=== PATIENT | female | born 1950 | race Caucasian/White ===

== ENCOUNTER 2017-04-14 15:09 | Emergency (ER) | payer MEDICARE, BC ==
[2017-04-14 15:14] VITALS: BP 155/92; PULSE 104; RESP 18; TEMP 98.5
[2017-04-14] MEDS ORDERED: DIPH,PERTUS(ACELL)TETVAC-LF 0.5 ML VIAL IM ONE (16:20)
[2017-04-14] MEDS ORDERED: TOPICAL SKIN ADHESIVE 1 EACH AMP TOPICAL ONE (17:13)
--- NOTE | 2017-04-14 17:34 | ED ---
Wound/Laceration HPI - General Chief Complaint: Wound/Laceration Stated Complaint: R leg laceration Time Seen by Provider: 04/14/17 16:03 Source: patient, RN notes reviewed, old records reviewed Mode of arrival: wheelchair Limitations: no limitations - History of Present Illness Initial Comments: This is a 66-year-old female presenting to the emergency department complaining of a laceration over the right lower leg. Patient reports that she is getting out of her car and it got caught on the metal part of the door frame. Patient states that she is currently trying to heal a laceration that occurred on her left leg with a wound care center. Patient reports that a similar situation happened on her left leg a few weeks ago and required her to get stitches. Patient reports that her wound did not heal well after getting stitches and now she is going through wound care. She does not want to have stitches at this time for her right leg. states that she is not up-to-date on her tetanus vaccination. She reports that she called her warhead maintenance specialist already about this new laceration and they report that they're going to help take care of this one. Patient reports that she has no pain with ambulation or movement. She reports that is almost a skin flap a chief continue the superficial muscle layer.Patient denies any recent fever, chills, shortness of breath, chest pain, back pain, abdominal pain, nausea vomiting, numbness or tingling, dysuria or hematuria, constipation or diarrhea, headaches or visual changes, or any other current symptoms - Related Data Home Medications Medication Instructions Recorded Confirmed Fluticasone Propionate [Flonase] 1 spray EA NOSTRIL BID 12/08/14 04/14/16 Fluticasone/Salmeterol [Advair 1 puff INHALATION RT-BID 12/08/14 04/14/16 250-50 Diskus] Montelukast [Singulair] 10 mg PO HS 12/08/14 04/14/16 fentaNYL [Fentanyl] 1 patch TOPICAL Q72H PRN 12/08/14 04/14/16 Atorvastatin [Lipitor] 20 mg PO HS 06/08/15 04/14/16 Metoprolol Succinate [Toprol XL] 50 mg PO BID 01/09/16 04/14/16 Omeprazole [PriLOSEC] 20 mg PO QAM 01/09/16 04/14/16 Albuterol Nebulized [Ventolin 2.5 mg INHALATION RT-Q6H PRN 01/21/16 04/14/16 Nebulized] Aspirin EC [Ecotrin] 81 mg PO DAILY 04/14/16 04/14/16 Bisacodyl [Dulcolax] 10 mg PO HS 04/14/16 04/14/16 Gabapentin [Neurontin] 300 mg PO DAILY@1800 04/14/16 04/14/16 Lisinopril [Prinivil] 5 mg PO DAILY 04/14/16 04/14/16 Metolazone [Zaroxolyn] 5 mg PO DAILY 04/14/16 04/14/16 Previous Rx's Medication Instructions Recorded Cephalexin [Keflex] 500 mg PO Q6HR 10 Days 04/14/17 Allergies Allergy/AdvReac Type Severity Reaction Status Date / Time hydromorphone [From Dilaudid] Allergy Unknown Verified 04/14/17 15:14 morphine Allergy Dyspnea Verified 04/14/17 15:14 nalbuphine HCl [From Nubain] Allergy Dyspnea Verified 04/14/17 15:14 naproxen [From Naprosyn] Allergy Dyspnea Verified 04/14/17 15:14 Review of Systems ROS Statement: Those systems with pertinent positive or pertinent negative responses have been documented in the HPI. ROS Other: All systems not noted in ROS Statement are negative. Past Medical History Past Medical History: Atrial Fibrillation, Cancer, COPD, Deep Vein Thrombosis ( DVT), GERD/Reflux, Hyperlipidemia, Hypertension, Prostate Disorder, Respiratory Disorder, Vascular Disorder Additional Past Medical History / Comment(s): LADY WINDERMERE'S SYNDROME, COPD, chronic bronchiectasis, chronic pulmonary colonization with Pseudomonas, breast cancer status post left mastectomy, atrial fibrillation, peripheral vascular disease, remote history of DVT of the lower extremity, hypertension, hyperlipidemia, History of Any Multi-Drug Resistant Organisms: VRE Date of last positivie culture/infection: 01/21/16 MDRO Source:: Urine Past Surgical History: Back Surgery, Breast Surgery, Cardiac Ablation, Hysterectomy Additional Past Surgical History / Comment(s): FEM/FEM BYPASS, 05/03/15 AT [place], LYSIS OF ADHESIONS/BOWEL, LEFT MASTECTOMY, MELECIO BREAST IMPLANTS, PREVIOUS BRONCHOSCOPY, lower back surgery, 2 bronchoscopies, colonoscopy-normal , r inguinal repair which pt states needs to be redone. Additional Past Anesthesia/Blood Transfusion Reaction / Comment(s): STATES TAKES LONG TIME WAKING UP Past Psychological History: No Psychological Hx Reported Additional Psychological History / Comment(s): Pt resides with her spouse. She is independent. She uses no assistive device. Smoking Status: Former smoker Past Alcohol Use History: None Reported Additional Past Alcohol Use History / Comment(s): SMOKED FROM 1963 TO 03-03-15 Past Drug Use History: None Reported Additional Drug Use History / Comment(s): USES MEDICAL MARIJUANA MARINOL PO OCCASIONALLY TO INCREASE APPETITE - Past Family History Father Family Medical History: Diabetes Mellitus Additional Family Medical History / Comment(s): Father at age 83 yrs. Sister(s) Family Medical History: Cancer, Deep Vein Thrombosis (DVT) Additional Family Medical History / Comment(s): BREAST, Mother Family Medical History: Deep Vein Thrombosis (DVT) Additional Family Medical History / Comment(s): Mother is 94 yrs old and doing well. General Exam - General Exam Comments Initial Comments: Pleasant 66-year-old female. No acute distress. Limitations: no limitations General appearance: alert, in no apparent distress Head exam: Present: atraumatic, normocephalic, normal inspection Eye exam: Present: normal appearance, PERRL, EOMI. Absent: scleral icterus, conjunctival injection, periorbital swelling ENT exam: Present: normal exam, mucous membranes moist, TM's normal bilaterally Neck exam: Present: normal inspection. Absent: tenderness, meningismus, lymphadenopathy Respiratory exam: Present: normal lung sounds bilaterally. Absent: respiratory distress, wheezes, rales, rhonchi, stridor Cardiovascular Exam: Present: regular rate, normal rhythm, normal heart sounds. Absent: systolic murmur, diastolic murmur, rubs, gallop, clicks GI/Abdominal exam: Present: soft, normal bowel sounds. Absent: distended, tenderness, guarding, rebound, rigid Extremities exam: Present: normal inspection, full ROM, normal capillary refill. Absent: tenderness, pedal edema, joint swelling, calf tenderness Right Knee exam: Present: normal inspection, full ROM Lower Leg exam: Present: full ROM, laceration (6cm laceration and skin flap. Evidence of fascia of muscle. No evidence of muscle laceration. ). Absent: normal inspection Ankle exam: Present: normal inspection, full ROM Foot/Toe exam: Present: normal inspection, full ROM Neurovascular tendon exam: Present: no vascular compromise Gait: not tested/not observed. negative: observed and normal Back exam: Present: normal inspection, full ROM Neurological exam: Present: alert, oriented X3, CN II-XII intact Psychiatric exam: Present: normal affect, normal mood Skin exam: Present: warm, dry, intact, normal color. Absent: rash Course Vital Signs 04/14/17 15:11 Temperature 98.5 F Pulse Rate 104 H Respiratory 18 Rate Blood Pressure 155/92 O2 Sat by Pulse 93 L Oximetry Procedures - Laceration Laceration #2 Indication: laceration Site: lower extremity (right hardin) Size (cm): 6 Description: flap Depth: simple, single layer Anesthetic Used: benzocaine 0.25% Amount (mls): 3 Pre-repair: wound explored, irrigated extensively Type of Sutures: other (steristrips and dermabond) Size of Sutures: other Number of Sutures: 12 (steristrips) Patient Tolerated Procedure: well, no complications Medical Decision Making - Medical Decision Making This is a 66-year-old female presenting to the emergency department complaining of a laceration over the right lower leg. Patient reports that she is getting out of her car and it got caught on the metal part of the door frame. Patient states that she is currently trying to heal a laceration that occurred on her left leg with a wound care center. Patient reports that a similar situation happened on her left leg a few weeks ago and required her to get stitches. Patient reports that her wound did not heal well after getting stitches and now she is going through wound care. She does not want to have stitches at this time for her right leg. states that she is not up-to-date on her tetanus vaccination. She reports that she called her warhead maintenance specialist already about this new laceration and they report that they're going to help take care of this one. Hardin has a significant laceration skin flap extending 6 cm. Patient wound was anesthetized and thoroughly irrigated with normal saline. Patient is refusing sutures. Discussed the benefit as this is a deep wound. Patient reports that she's had a bad experience and she is currently undergoing wound care because of it. Patient reports that she only wants Steri-Strips. Discussed the risk and benefits of Steri-Strips and that it could possibly open up and patient still wanted to have the Steri-Strips. Wound was cleaned and well approximated. Patient received approximately 12 Steri-Strips to hold the wound closed. We discussed that she needs to be nonweightbearing is this could cause the sutures should to open the wound up. Discussed close follow-up with her warhead maintenance specialist. Patient is up-to-date on her tetanus vaccination. She was also placed on Keflex. Patient understands treatment plan will comply. Return parameters were discussed. Disposition Clinical Impression: Noninfected skin tear of right leg Disposition: HOME SELF-CARE Condition: Good Instructions: Skin Tear (ED) Additional Instructions: Patient advised to put wound dressing on. Do not get this area wet for the next 48 hours. Patient should be nonweightbearing for the next 24-48 hours. Follow-up with your warhead maintenance specialist. Return to the emergency department if any alarming signs or symptoms occur. Prescriptions: Cephalexin [Keflex] 500 mg PO Q6HR 10 Days Referrals: Juan Alberto Pascual DO [Primary Care Provider] - 1-2 days Time of Disposition: 17:33
== END 2017-04-14 17:54 | disposition home or self-care (01) ==
LOC: EC 15:09
DX: S81.811A Laceration without foreign body, right lower leg, initial encounter (principal); E78.5 Hyperlipidemia, unspecified; I10 Essential (primary) hypertension; J47.9 Bronchiectasis, uncomplicated; K21.9 Gastro-esophageal reflux disease without esophagitis; Z87.891 Personal history of nicotine dependence; Z79.51 Long term (current) use of inhaled steroids; Z79.82 Long term (current) use of aspirin; Z79.899 Other long term (current) drug therapy; Z88.5 Allergy status to narcotic agent; Z88.6 Allergy status to analgesic agent; Z85.3 Personal history of malignant neoplasm of breast; Z90.12 Acquired absence of left breast and nipple; Z98.82 Breast implant status; Z23 Encounter for immunization; W22.8XXA Striking against or struck by other objects, initial encounter; Y93.89 Activity, other specified
CPT/HCPCS: 90471; 90715; 99282

== ENCOUNTER → 2017-04-21 | Outpatient (CLI) | payer MEDICARE, BC ==
--- NOTE | 2017-04-21 14:11 | XR ---
Abdomen HISTORY: Constipation Frontal view of the abdomen correlated to prior exam 01/26/2016, lumbar spine today and prior lumbar sp ine 02/25/2016 Left common iliac stent is noted. Lung bases are stable, there are interstitial changes at the left l jaquelin base. No bowel obstruction or pneumoperitoneum is evident. Bone mineralization is reduced. There is been interval vertebroplasty at T10 for osteoporotic compression fracture. Compression deformity n oted inferior endplate L2 as on prior lumbar spine plain film. IMPRESSION: Nonobstructive bowel gas pattern
--- NOTE | 2017-04-21 14:12 | XR ---
EXAMINATION TYPE: XR lumbosacral spine min 4V DATE OF EXAM ORDERED: 04/21/2017 HISTORY: M54.5 LOW BACK PAIN. COMPARISON: Previous study dated 02/25/2016. FINDINGS: There is a gentle dextroscoliosis at the thoracolumbar junction. There is mild wedging of the L2 vertebral body unchanged from previous. There is worsening wedging of the T11 vertebral body. Alignment remains normal. There is disc space loss, most marked at T12-L1 an d L4-5. There is hypertrophic spondylosis at T12-L1, L2-3 and L4-5. There is facet arthropathy in the lower lumbar facets. The pedicles are intact. Incidental note is made of a left iliac stent. IMPRESSION: 1. WORSENING WEDGING OF THE T11 VERTEBRAL BODY. 2. STABLE SUPERIOR ENDPLATE INFRACTION OF THE L2 VERTEBRAL BODY. 3. NO ACUTE OSSEOUS LESION. 4. DEGENERATIVE CHANGE.
== END | disposition home or self-care (01) ==
LOC: RADXRMAIN 13:16
PROVIDERS: ATTEND Internal Medicine
DX: M47.816 Spondylosis without myelopathy or radiculopathy, lumbar region (principal); K59.00 Constipation, unspecified
CPT/HCPCS: 72110; 74000; 96365

== ENCOUNTER 2017-05-11 12:22 | Emergency (ER) | payer MEDICARE, BC ==
[2017-05-11] MEDS ORDERED: DIAZEPAM 5 MG/ML 2 ML SYRINGE IVP STA (12:32)
[2017-05-11] MEDS ORDERED: KETOROLAC 30 MG/ML 1 ML VIAL IVP STA (12:32)
--- NOTE | 2017-05-11 12:33 | ED ---
General Adult HPI - General Stated complaint: med reaction/Pain Time Seen by Provider: 05/11/17 12:26 Source: RN notes reviewed, old records reviewed - History of Present Illness Initial comments: This is a 59-year-old female here for evaluation. The patient presents here today for evaluation of medication reaction. Patient received transfusion of iron today. Patient then began to have severe back pain. Patient same reaction about 8 years ago when she had same procedure. No acute distress. Patient is complaining of pain - Related Data Home Medications Medication Instructions Recorded Confirmed Montelukast [Singulair] 10 mg PO HS 12/08/14 05/11/17 Atorvastatin [Lipitor] 20 mg PO HS 06/08/15 05/11/17 Omeprazole [PriLOSEC] 20 mg PO BID 01/09/16 05/11/17 Aspirin EC [Ecotrin] 81 mg PO DAILY 04/14/16 05/11/17 Bisacodyl [Dulcolax] 10 - 15 mg PO HS 04/14/16 05/11/17 Gabapentin [Neurontin] 300 mg PO BID 04/14/16 05/11/17 Albuterol 0.5% Nebulizer Soln 1 vial INHALATION RT-Q6H PRN 05/11/17 05/11/17 Docusate [Colace] 200 mg PO DAILY 05/11/17 05/11/17 Dymista Nasal [place] 1 spray EA NOSTRIL DAILY 05/11/17 05/11/17 Furosemide [Lasix] 20 - 40 mg PO DAILY 05/11/17 05/11/17 Lactulose 20 gm PO DAILY 05/11/17 05/11/17 Metoprolol Tartrate 25 mg PO HS 05/11/17 05/11/17 Spironolactone [Aldactone] 12.5 mg PO BID 05/11/17 05/11/17 Tiotropium [place] [Spiriva] 1 cap INHALATION RT-BID 05/11/17 05/11/17 Tobramycin 300mg/5ml Neb Soln 300 mg INHALATION RT-BID 05/11/17 05/11/17 predniSONE 20 mg PO HS 05/11/17 05/11/17 traMADol HCL [Ultram] 50 mg PO Q6HR PRN 05/11/17 05/11/17 Allergies Allergy/AdvReac Type Severity Reaction Status Date / Time hydromorphone [From Dilaudid] Allergy Unknown Verified 05/11/17 13:02 morphine Allergy Dyspnea Verified 05/11/17 13:02 nalbuphine HCl [From Nubain] Allergy Dyspnea Verified 05/11/17 13:02 naproxen [From Naprosyn] Allergy Dyspnea Verified 05/11/17 13:02 Review of Systems ROS Statement: Those systems with pertinent positive or pertinent negative responses have been documented in the HPI. ROS Other: All systems not noted in ROS Statement are negative. Past Medical History Past Medical History: Atrial Fibrillation, Cancer, COPD, Deep Vein Thrombosis ( DVT), GERD/Reflux, Hyperlipidemia, Hypertension, Prostate Disorder, Respiratory Disorder, Vascular Disorder Additional Past Medical History / Comment(s): LADY WINDERMERE'S SYNDROME, COPD, chronic bronchiectasis, chronic pulmonary colonization with Pseudomonas, breast cancer status post left mastectomy, atrial fibrillation, peripheral vascular disease, remote history of DVT of the lower extremity, hypertension, hyperlipidemia, History of Any Multi-Drug Resistant Organisms: VRE Date of last positivie culture/infection: 01/21/16 MDRO Source:: Urine Past Surgical History: Back Surgery, Breast Surgery, Cardiac Ablation, Hysterectomy Additional Past Surgical History / Comment(s): FEM/FEM BYPASS, 05/03/15 AT [place], LYSIS OF ADHESIONS/BOWEL, LEFT MASTECTOMY, MELECIO BREAST IMPLANTS, PREVIOUS BRONCHOSCOPY, lower back surgery, 2 bronchoscopies, colonoscopy-normal , r inguinal repair which pt states needs to be redone. Additional Past Anesthesia/Blood Transfusion Reaction / Comment(s): STATES TAKES LONG TIME WAKING UP Smoking Status: Former smoker - Past Family History Father Family Medical History: Diabetes Mellitus Additional Family Medical History / Comment(s): Father at age 83 yrs. Sister(s) Family Medical History: Cancer, Deep Vein Thrombosis (DVT) Additional Family Medical History / Comment(s): BREAST, Mother Family Medical History: Deep Vein Thrombosis (DVT) Additional Family Medical History / Comment(s): Mother is 94 yrs old and doing well. General Exam General appearance: alert, in no apparent distress Head exam: Present: atraumatic, normocephalic, normal inspection Eye exam: Present: normal appearance, PERRL, EOMI. Absent: scleral icterus, conjunctival injection, periorbital swelling ENT exam: Present: normal exam, mucous membranes moist Neck exam: Present: normal inspection. Absent: tenderness, meningismus, lymphadenopathy Respiratory exam: Present: normal lung sounds bilaterally. Absent: respiratory distress, wheezes, rales, rhonchi, stridor Cardiovascular Exam: Present: regular rate, normal rhythm, normal heart sounds. Absent: systolic murmur, diastolic murmur, rubs, gallop, clicks GI/Abdominal exam: Present: soft, normal bowel sounds. Absent: distended, tenderness, guarding, rebound, rigid Extremities exam: Present: normal inspection, full ROM, normal capillary refill. Absent: tenderness, pedal edema, joint swelling, calf tenderness Back exam: Present: normal inspection Neurological exam: Present: alert, oriented X3, CN II-XII intact Psychiatric exam: Present: normal affect, normal mood Skin exam: Present: warm, dry, intact, normal color. Absent: rash Course Vital Signs 05/11/17 05/11/17 12:42 12:52 Temperature 97.3 F L 97.3 F L Pulse Rate 102 H 101 H Respiratory 20 20 Rate Blood Pressure 126/59 126/59 O2 Sat by Pulse 96 94 L Oximetry - Reevaluation(s) Reevaluation #1: 05/11/17 13:19 Patient's pain at this time is improved, refusing any further pain medication Medical Decision Making - Medical Decision Making 59 female here with medication reaction, patient's symptoms are improved at this time, patient will be discharged home Disposition Clinical Impression: Medication reaction Disposition: HOME SELF-CARE Condition: Good Instructions: Back Pain (ED) Referrals: Juan Alberto Pascual DO [Primary Care Provider] - 1-2 days
[2017-05-11] MEDS ORDERED: ACETAMINOPHEN IV (For NPO) 1,000 MG in EMPTY BAG 1 BAG IVPB STA (12:35)
[2017-05-11 14:05] VITALS: RESP 16; TEMP 97.4
[2017-05-11 14:49] VITALS: BP 100/61; PULSE 85
== END 2017-05-11 14:47 | disposition home or self-care (01) ==
LOC: EC 12:22
DX: M54.9 Dorsalgia, unspecified (principal); T45.4X5A Adverse effect of iron and its compounds, initial encounter; K21.9 Gastro-esophageal reflux disease without esophagitis; E78.5 Hyperlipidemia, unspecified; I10 Essential (primary) hypertension; Z87.891 Personal history of nicotine dependence; Z88.5 Allergy status to narcotic agent; Z88.8 Allergy status to other drugs, medicaments and biological substances; Z85.3 Personal history of malignant neoplasm of breast; Z79.82 Long term (current) use of aspirin; Z79.52 Long term (current) use of systemic steroids; Z79.899 Other long term (current) drug therapy
CPT/HCPCS: 99283; 96365; 96366; 96375; J1885; J0131

== ENCOUNTER → 2017-06-07 | Outpatient (CLI) | payer MEDICARE, BC ==
--- NOTE | 2017-06-07 13:04 | XR ---
EXAMINATION TYPE: XR chest 2V DATE OF EXAM: 06/07/2017 HISTORY: I50.32 CHF. REFERENCE: Previous study dated 04/14/2016. FINDINGS: There is a moderate dextroscoliosis. There has been a previous kyphoplasty one of the mid d orsal vertebra. The lungs are overinflated. Heart size upper limits of normal. There is scarring in the upper lobes b ilaterally. There is diffuse interstitial change. At least part of this is chronic. There are multipl e tiny nodules throughout the right lung. These are present previously. No definite pleural fluid is seen. IMPRESSION: 1. COPD. 2. BORDERLINE CARDIOMEGALY. 3. CHRONIC INTERSTITIAL CHANGE. 4. MULTIPLE RIGHT-SIDED PULMONARY NODULES.
--- NOTE | 2017-06-07 13:06 | XR ---
EXAMINATION TYPE: XR abdomen 1V DATE OF EXAM: 06/07/2017 COMPARISON: 04/21/2017 HISTORY: Pain TECHNIQUE: One view abdominal series FINDINGS: The osseous structures are intact. The bowel gas pattern is nonspecific. Lung bases are clear. Dege nerative change of the spine with compression deformity of T12 and L2 stable from previous. Vascular stent and vascular calcifications noted. Arthropathy of the hip joints. Additional nonspecific calcifications in the upper abdomen. Chronic ap pearing deformity of the pubic symphysis on the right. IMPRESSION: 1. Nonspecific abdomen. Single prominent bowel loop in the midabdomen. Correlate clinically. 2. Somewhat nodular pattern to the left hemidiaphragm. Chest X-ray correlation suggested.
== END | disposition home or self-care (01) ==
LOC: RADXRMAIN 12:33
PROVIDERS: ATTEND Internal Medicine
DX: I50.32 Chronic diastolic (congestive) heart failure (principal); J44.9 Chronic obstructive pulmonary disease, unspecified; R91.8 Other nonspecific abnormal finding of lung field; R10.0 Acute abdomen
CPT/HCPCS: 71020; 74000

== ENCOUNTER → 2017-06-23 | Outpatient (CLI) | payer MEDICARE, BC ==
[2017-06-23 13:13] LABS: Basophils # (A) 0.1 k/uL (0-0.2); Basophils % (A) 0 %; CH 29.6; CHCM 31.9; Eosinophils % (A) 0 %; HCT 38.1 % (34.0-46.0); HDW 3.22; HGB 12.4 gm/dL (11.4-16.0); Hypochromasia Slight; Luc # (Auto) 0.08; Luc % (Auto) 1; Lymphocytes # (A) 0.8 k/uL (1.0-4.8); Lymphocytes % (A) 5 %; MCH 30.6 pg (25.0-35.0); MCHC 32.6 g/dL (31.0-37.0); MCV 93.8 fL (80.0-100.0); Mean Platelet Volume 6.4; Monocytes # (A) 0.2 k/uL (0-1.0); Monocytes % (A) 2 %; Neutrophils # (A) 14.4 k/uL (1.3-7.7); Neutrophils % (A) 93 %; RBC 4.06 m/uL (3.80-5.40); RDW 15.7 % (11.5-15.5); WBC 15.6 k/uL (3.8-10.6); WBC (Perox) 15.37
[2017-06-23 13:28] LABS: Calcium 9.4 mg/dL (8.4-10.2); Magnesium 1.8 mg/dL (1.6-2.3); Potassium 3.8 mmol/L (3.5-5.1); Total Bilirubin 0.4 mg/dL (0.2-1.3); Total Protein 6.3 g/dL (6.3-8.2)
== END | disposition home or self-care (01) ==
LOC: LABWHC1 12:41
PROVIDERS: ATTEND Internal Medicine
DX: M62.830 Muscle spasm of back (principal); I50.32 Chronic diastolic (congestive) heart failure
CPT/HCPCS: 36415; 80053; 83735; 83880; 85025

== ENCOUNTER → 2017-07-07 | Outpatient (CLI) | payer MEDICARE, BC ==
[2017-07-07 16:21] LABS: Anisocytosis Slight; Basophils % (A) 0 %; CH 30.9; CHCM 32.3; Eosinophils # (A) 0.1 k/uL (0-0.7); Eosinophils % (A) 1 %; HCT 39.1 % (34.0-46.0); HDW 3.01; HGB 12.4 gm/dL (11.4-16.0); Luc % (Auto) 1; Lymphocytes # (A) 0.9 k/uL (1.0-4.8); Lymphocytes % (A) 8 %; MCH 30.6 pg (25.0-35.0); MCHC 31.8 g/dL (31.0-37.0); MCV 96.4 fL (80.0-100.0); Mean Platelet Volume 6.9; Monocytes # (A) 0.5 k/uL (0-1.0); Monocytes % (A) 4 %; Neutrophils # (A) 9.7 k/uL (1.3-7.7); Neutrophils % (A) 86 %; RBC 4.06 m/uL (3.80-5.40); RDW 16.2 % (11.5-15.5); WBC 11.3 k/uL (3.8-10.6)
[2017-07-07 16:31] LABS: Calcium 9.7 mg/dL (8.4-10.2); Potassium 3.8 mmol/L (3.5-5.1); Total Bilirubin 0.3 mg/dL (0.2-1.3); Total Protein 6.8 g/dL (6.3-8.2)
--- NOTE | 2017-07-07 17:15 | XR ---
EXAMINATION TYPE: XR chest 2V DATE OF EXAM: 07/07/2017 COMPARISON: 06/07/2017 HISTORY: Chest pain TECHNIQUE: Frontal and lateral views of the chest are obtained. FINDINGS: There is coarsening of interstitial pulmonary markings. There is no definite heart failure . Heart size is normal. There is some curvilinear density with calcification in the left upper lobe. There is thoracic kyphotic deformity with anterior wedging of several thoracic vertebra. There is ost eopenia. IMPRESSION: Pulmonary interstitial fibrosis and scarring. No acute lung disease. No change compared to old exam. Multiple old thoracic compression fractures.
== END | disposition home or self-care (01) ==
LOC: LABWHC1 15:49
PROVIDERS: ATTEND Internal Medicine
DX: J84.10 Pulmonary fibrosis, unspecified (principal); J98.4 Other disorders of lung; J18.9 Pneumonia, unspecified organism
CPT/HCPCS: 36415; 71020; 80053; 85025; 87070

== ENCOUNTER → 2017-09-01 | Outpatient (CLI) | payer MEDICARE, BC ==
--- NOTE | 2017-09-01 15:55 | XR ---
EXAMINATION TYPE: XR chest 2V DATE OF EXAM: 09/01/2017 COMPARISON: Prior chest x-ray 07/07/2017 HISTORY: Pneumonia TECHNIQUE: Frontal and lateral views of the chest are obtained. FINDINGS: There is no focal air space opacity, pleural effusion, or pneumothorax seen. Prominent sincere g volumes compatible with COPD. Areas of scarring are again noted. Interstitium is prominent as on pr evious exam. There is a scoliosis. Prior vertebroplasty change noted in the lower thoracic spine. The cardiac silhouette size is stable. Multiple thoracic compression deformities present. There are alexey st prostheses. IMPRESSION: No acute cardiopulmonary process. Interstitial lung disease. Additional findings above.
== END | disposition home or self-care (01) ==
LOC: RADXRMAIN 15:18
PROVIDERS: ATTEND Internal Medicine
DX: J84.9 Interstitial pulmonary disease, unspecified (principal)
CPT/HCPCS: 71020

== ENCOUNTER 2017-09-08 13:22 | Emergency (ER) | payer MEDICARE, BC ==
[2017-09-08 13:32] VITALS: BP 137/92; PULSE 95; RESP 16; TEMP 99
[2017-09-08] MEDS ORDERED: TOPICAL SKIN ADHESIVE 1 EACH AMP TOPICAL ONE (13:41)
--- NOTE | 2017-09-08 14:13 | ED ---
Wound/Laceration HPI - General Chief Complaint: Wound/Laceration Stated Complaint: Leg Laceration Time Seen by Provider: 09/08/17 13:34 Source: patient, RN notes reviewed Mode of arrival: wheelchair Limitations: no limitations - History of Present Illness Initial Comments: This is a pleasant 67-year-old female with a history of COPD and peripheral vascular disease. She presents emergency department today after sustaining a small wound to the anterior aspect of her left lower leg when her oxygen tank fell over and scraped her. She denies any significant pain. No difficulty with ambulation. No other wounds. Last tetanus shot was 5 months ago. Patient was concerned because she has had problems with wound healing in the past. They made an attempt at home to clean the wound and approximate the skin edges. However, they decided to have the wound checked out. Injury occurred just prior to arrival. No other injuries. Distal paresthesias. No distal or proximal injuries. - Related Data Home Medications Medication Instructions Recorded Confirmed Montelukast [Singulair] 10 mg PO HS 12/08/14 05/11/17 Atorvastatin [Lipitor] 20 mg PO HS 06/08/15 05/11/17 Omeprazole [PriLOSEC] 20 mg PO BID 01/09/16 05/11/17 Aspirin EC [Ecotrin] 81 mg PO DAILY 04/14/16 05/11/17 Bisacodyl [Dulcolax] 10 - 15 mg PO HS 04/14/16 05/11/17 Gabapentin [Neurontin] 300 mg PO BID 04/14/16 05/11/17 Albuterol 0.5% Nebulizer Soln 1 vial INHALATION RT-Q6H PRN 05/11/17 05/11/17 Docusate [Colace] 200 mg PO DAILY 05/11/17 05/11/17 Dymista Nasal [place] 1 spray EA NOSTRIL DAILY 05/11/17 05/11/17 Furosemide [Lasix] 20 - 40 mg PO DAILY 05/11/17 05/11/17 Lactulose 20 gm PO DAILY 05/11/17 05/11/17 Metoprolol Tartrate 25 mg PO HS 05/11/17 05/11/17 Spironolactone [Aldactone] 12.5 mg PO BID 05/11/17 05/11/17 Tiotropium [place] [Spiriva] 1 cap INHALATION RT-BID 05/11/17 05/11/17 Tobramycin 300mg/5ml Neb Soln 300 mg INHALATION RT-BID 05/11/17 05/11/17 predniSONE 20 mg PO HS 05/11/17 05/11/17 traMADol HCL [Ultram] 50 mg PO Q6HR PRN 05/11/17 05/11/17 Allergies Allergy/AdvReac Type Severity Reaction Status Date / Time hydromorphone [From Dilaudid] Allergy Unknown Verified 09/08/17 13:32 morphine Allergy Dyspnea Verified 09/08/17 13:32 nalbuphine HCl [From Nubain] Allergy Dyspnea Verified 09/08/17 13:32 naproxen [From Naprosyn] Allergy Dyspnea Verified 09/08/17 13:32 Review of Systems ROS Statement: Those systems with pertinent positive or pertinent negative responses have been documented in the HPI. ROS Other: All systems not noted in ROS Statement are negative. Past Medical History Past Medical History: Atrial Fibrillation, Cancer, COPD, Deep Vein Thrombosis ( DVT), GERD/Reflux, Hyperlipidemia, Hypertension, Prostate Disorder, Respiratory Disorder, Vascular Disorder Additional Past Medical History / Comment(s): LADY WINDERMERE'S SYNDROME, COPD, chronic bronchiectasis, chronic pulmonary colonization with Pseudomonas, breast cancer status post left mastectomy, atrial fibrillation, peripheral vascular disease, remote history of DVT of the lower extremity, hypertension, hyperlipidemia, History of Any Multi-Drug Resistant Organisms: VRE Date of last positivie culture/infection: 01/21/16 MDRO Source:: Urine Past Surgical History: Back Surgery, Breast Surgery, Cardiac Ablation, Hysterectomy Additional Past Surgical History / Comment(s): FEM/FEM BYPASS, 05/03/15 AT [place], LYSIS OF ADHESIONS/BOWEL, LEFT MASTECTOMY, MELECIO BREAST IMPLANTS, PREVIOUS BRONCHOSCOPY, lower back surgery, 2 bronchoscopies, colonoscopy-normal , r inguinal repair which pt states needs to be redone. Additional Past Anesthesia/Blood Transfusion Reaction / Comment(s): STATES TAKES LONG TIME WAKING UP Past Psychological History: No Psychological Hx Reported Smoking Status: Former smoker Additional History: Reviewed all past medical history. - Past Family History Father Family Medical History: Diabetes Mellitus Additional Family Medical History / Comment(s): Father at age 83 yrs. Sister(s) Family Medical History: Cancer, Deep Vein Thrombosis (DVT) Additional Family Medical History / Comment(s): BREAST, Mother Family Medical History: Deep Vein Thrombosis (DVT) Additional Family Medical History / Comment(s): Mother is 94 yrs old and doing well. General Exam - General Exam Comments Initial Comments: This is a thin-appearing 67-year-old female in no distress Limitations: no limitations General appearance: alert, in no apparent distress Head exam: Present: atraumatic, normocephalic, normal inspection Eye exam: Present: normal appearance, EOMI. Absent: scleral icterus, conjunctival injection ENT exam: Present: normal exam, normal oropharynx Neck exam: Present: normal inspection Respiratory exam: Present: normal lung sounds bilaterally. Absent: respiratory distress, wheezes, rales, rhonchi, stridor Cardiovascular Exam: Present: regular rate, normal rhythm, normal heart sounds. Absent: systolic murmur, diastolic murmur, rubs, gallop, clicks Neurological exam: Present: alert, oriented X3, CN II-XII intact Psychiatric exam: Present: normal affect, normal mood Skin exam: Present: warm, dry, other (Patient has a superficial skin tear to the anterior aspect of her left lower leg. This is triangular in shape. Skin tears 3 cm in length. There is no contamination. No evidence of infection. Extends slightly into subcutaneous tissue.). Absent: intact Course Vital Signs 09/08/17 13:30 Temperature 99 F Pulse Rate 95 Respiratory 16 Rate Blood Pressure 137/92 O2 Sat by Pulse 95 Oximetry Procedures - Laceration Laceration #1 Consent Obtained: verbal consent Time Out Performed: No Indication: laceration Site: lower extremity, other (Left lower leg) Size (cm): 3 Description: flap Depth: simple, single layer Pre-repair: wound explored, irrigated extensively Type of Sutures: other (Dermabond) Patient Tolerated Procedure: well, no complications Additional Comments: Dermabond care discussed, signs and symptoms of infection discussed. Medical Decision Making - Medical Decision Making Return to the ER at once if the symptoms worsen or problems or difficulties arise. Return and follow-up parameters discussed. Disposition Clinical Impression: Skin tear of left lower leg without complication Disposition: HOME SELF-CARE Condition: Good Instructions: Skin Adhesive Care (ED) Additional Instructions: Return to the ER at once if the symptoms worsen or problems or difficulties arise. Much for signs and symptoms of infection. Referrals: Juan Alberto Pascual DO [Primary Care Provider] - 09/11/17 Time of Disposition: 14:08
== END 2017-09-08 14:12 | disposition home or self-care (01) ==
LOC: EC 13:22
DX: S81.812A Laceration without foreign body, left lower leg, initial encounter (principal); I48.91 Unspecified atrial fibrillation; J44.9 Chronic obstructive pulmonary disease, unspecified; K21.9 Gastro-esophageal reflux disease without esophagitis; E78.5 Hyperlipidemia, unspecified; I10 Essential (primary) hypertension; Z85.3 Personal history of malignant neoplasm of breast; Z87.891 Personal history of nicotine dependence; Z79.82 Long term (current) use of aspirin; Z79.52 Long term (current) use of systemic steroids; Z79.899 Other long term (current) drug therapy; Z88.5 Allergy status to narcotic agent; Z88.8 Allergy status to other drugs, medicaments and biological substances; W22.8XXA Striking against or struck by other objects, initial encounter
CPT/HCPCS: 12002; 99282

== ENCOUNTER 2017-09-12 16:10 | Emergency (ER) | payer MEDICARE, BC ==
[2017-09-12 16:15] VITALS: BP 173/98; PULSE 90; RESP 18; TEMP 98.1
--- NOTE | 2017-09-12 16:43 | ED ---
Wound/Laceration HPI - General Chief Complaint: Wound/Laceration Stated Complaint: L leg laceration Time Seen by Provider: 09/12/17 16:20 Source: patient Mode of arrival: wheelchair Limitations: no limitations - History of Present Illness Initial Comments: Patient presents with laceration to left calf area that occurred approximately 30 minutes ago. Patient states she scraped it on the corner of her 's truck while getting in. States small amount of bleeding has since stopped. Patient denies problems fighting infection, denies diabetes, denies bleeding disorders or blood to use. Patient states is painful initially, however no pain at this time unless palpated. Denies numbness or weakness in the left lower leg. Patient states she has a similar cut in the past after an oxygen bottle scraped her leg, states it had to be glued closed. Patient states she's had stitches in the past that never hold in her skin, magneto specialist recommended she never did sutures. Patient states she had sutures removed and had complications from them, and then had to have wound healing "from the inside out". Tetanus up to date. - Related Data Home Medications Medication Instructions Recorded Confirmed Montelukast [Singulair] 10 mg PO HS 12/08/14 09/12/17 Atorvastatin [Lipitor] 20 mg PO HS 06/08/15 09/12/17 Omeprazole [PriLOSEC] 20 mg PO BID 01/09/16 09/12/17 Aspirin EC [Ecotrin] 81 mg PO DAILY 04/14/16 09/12/17 Bisacodyl [Dulcolax] 10 - 15 mg PO HS 04/14/16 09/12/17 Gabapentin [Neurontin] 300 mg PO BID 04/14/16 09/12/17 Albuterol 0.5% Nebulizer Soln 1 vial INHALATION RT-Q6H PRN 05/11/17 09/12/17 Docusate [Colace] 200 mg PO DAILY 05/11/17 09/12/17 Dymista Nasal [place] 1 spray EA NOSTRIL DAILY 05/11/17 09/12/17 Furosemide [Lasix] 40 mg PO BID 05/11/17 09/12/17 Lactulose 20 gm PO DAILY 05/11/17 09/12/17 Metoprolol Tartrate 25 mg PO HS 05/11/17 09/12/17 Spironolactone [Aldactone] 12.5 mg PO BID 05/11/17 09/12/17 Tiotropium [place] [Spiriva] 1 cap INHALATION RT-BID 05/11/17 09/12/17 Tobramycin 300mg/5ml Neb Soln 300 mg INHALATION RT-BID 05/11/17 09/12/17 predniSONE 20 mg PO HS 05/11/17 09/12/17 traMADol HCL [Ultram] 50 mg PO Q6HR PRN 05/11/17 09/12/17 Fluticasone/Salmeterol [Advair 1 inhalation PO RT-BID 09/12/17 09/12/17 250-50 Diskus] Allergies Allergy/AdvReac Type Severity Reaction Status Date / Time hydromorphone [From Dilaudid] Allergy Unknown Verified 09/12/17 16:44 morphine Allergy Dyspnea Verified 09/12/17 16:44 nalbuphine HCl [From Nubain] Allergy Dyspnea Verified 09/12/17 16:44 naproxen [From Naprosyn] Allergy Dyspnea Verified 09/12/17 16:44 Review of Systems ROS Statement: Those systems with pertinent positive or pertinent negative responses have been documented in the HPI. ROS Other: All systems not noted in ROS Statement are negative. Constitutional: Denies: fever, chills Skin: Reports: other (lacetation) Neurological: Denies: weakness, numbness Hematological/Lymphatic: Denies: easy bleeding, easy bruising Past Medical History Past Medical History: Atrial Fibrillation, Cancer, COPD, Deep Vein Thrombosis ( DVT), GERD/Reflux, Hyperlipidemia, Hypertension, Prostate Disorder, Respiratory Disorder, Vascular Disorder Additional Past Medical History / Comment(s): LADY WINDERMERE'S SYNDROME, COPD, chronic bronchiectasis, chronic pulmonary colonization with Pseudomonas, breast cancer status post left mastectomy, atrial fibrillation, peripheral vascular disease, remote history of DVT of the lower extremity, hypertension, hyperlipidemia, History of Any Multi-Drug Resistant Organisms: VRE Date of last positivie culture/infection: 01/21/16 MDRO Source:: Urine Past Surgical History: Back Surgery, Breast Surgery, Cardiac Ablation, Hysterectomy Additional Past Surgical History / Comment(s): FEM/FEM BYPASS, 05/03/15 AT [place], LYSIS OF ADHESIONS/BOWEL, LEFT MASTECTOMY, MELECIO BREAST IMPLANTS, PREVIOUS BRONCHOSCOPY, lower back surgery, 2 bronchoscopies, colonoscopy-normal , r inguinal repair which pt states needs to be redone. Additional Past Anesthesia/Blood Transfusion Reaction / Comment(s): STATES TAKES LONG TIME WAKING UP Past Psychological History: No Psychological Hx Reported Smoking Status: Former smoker Past Alcohol Use History: None Reported Past Drug Use History: None Reported - Past Family History Father Family Medical History: Diabetes Mellitus Additional Family Medical History / Comment(s): Father at age 83 yrs. Sister(s) Family Medical History: Cancer, Deep Vein Thrombosis (DVT) Additional Family Medical History / Comment(s): BREAST, Mother Family Medical History: Deep Vein Thrombosis (DVT) Additional Family Medical History / Comment(s): Mother is 94 yrs old and doing well. General Exam Limitations: no limitations General appearance: alert, in no apparent distress Head exam: Present: atraumatic, normocephalic Eye exam: Present: EOMI Pupils: Present: normal accommodation ENT exam: Present: mucous membranes moist, normal external ear exam Respiratory exam: Present: normal lung sounds bilaterally. Absent: respiratory distress, wheezes Cardiovascular Exam: Present: regular rate, normal rhythm, other (DP and PT pulses intact bilaterally.) GI/Abdominal exam: Present: soft. Absent: distended Extremities exam: Present: full ROM, normal capillary refill. Absent: tenderness, joint swelling Neurological exam: Present: alert, oriented X3, other (Sensation intact in lower extremities bilaterally. Muscle strength intact lower extremities bilaterally.) Psychiatric exam: Present: normal affect, normal mood Skin exam: Present: warm, dry (3 cm laceration that is angulated with approximately 45 angle in the middle, into the deep tissue, no active bleeding. No surrounding erythema.) Course Vital Signs 09/12/17 16:12 Temperature 98.1 F Pulse Rate 90 Respiratory 18 Rate Blood Pressure 173/98 O2 Sat by Pulse 92 L Oximetry Procedures - Laceration Laceration #1 Consent Obtained: verbal consent Time Out Performed: Yes Indication: laceration Site: lower extremity Description: flap Anesthetic Used: lidocaine 1%, without epi Anesthesia Technique: local infiltration Pre-repair: wound explored, irrigated extensively, deep structures intact Size of Sutures: 4-0 Technique: running Patient Tolerated Procedure: well Additional Comments: Running subcutaneous sutures placed through the subcutaneous fatty tissue to hold flap in place and disability to the dermis. Skin Was approximated well, Maxine place with Dermabond and Steri-Strips. Patient states she is unable to tolerate sutures through the dermis. Good approximation and closure with Tim and Steri-Strips. Clean sterile gauze dressing applied. Medical Decision Making - Medical Decision Making Patient states she cannot have sutures, therefore wound was closed with Dermabond and Steri-Strips with good approximation and outcome thus far. Patient tolerated procedure well. Patient agrees to follow up with her wound care doctor's outpatient. Patient feel comfortable being discharged at this time. Patient is very happy with her care. Disposition Clinical Impression: Laceration Disposition: HOME SELF-CARE Condition: Good Instructions: Laceration (ED) Additional Instructions: Follow-up with your doctor in [place] within 1-2 days. Range bandage daily. Return to ED if new or worsening symptoms including redness, bleeding, drainage , pus, fevers, chills. Referrals: Juan Alberto Pascual DO [Primary Care Provider] - 1-2 days
[2017-09-12] MEDS ORDERED: TOPICAL SKIN ADHESIVE 1 EACH AMP TOPICAL ONE (17:04)
== END 2017-09-12 17:48 | disposition home or self-care (01) ==
LOC: EC 16:10
DX: S81.812A Laceration without foreign body, left lower leg, initial encounter (principal); I48.91 Unspecified atrial fibrillation; J44.9 Chronic obstructive pulmonary disease, unspecified; K21.9 Gastro-esophageal reflux disease without esophagitis; E78.5 Hyperlipidemia, unspecified; I10 Essential (primary) hypertension; I73.9 Peripheral vascular disease, unspecified; Z85.3 Personal history of malignant neoplasm of breast; Z98.890 Other specified postprocedural states; Z87.891 Personal history of nicotine dependence; Z79.899 Other long term (current) drug therapy; Z79.82 Long term (current) use of aspirin; Z79.51 Long term (current) use of inhaled steroids; Z88.8 Allergy status to other drugs, medicaments and biological substances; Z88.6 Allergy status to analgesic agent; Z88.5 Allergy status to narcotic agent; W45.8XXA Other foreign body or object entering through skin, initial encounter
CPT/HCPCS: 12002; 99282

== ENCOUNTER → 2018-06-07 | Outpatient (CLI) | payer MEDICARE, BC ==
--- NOTE | 2018-06-07 13:59 | US ---
EXAMINATION TYPE: US venous doppler duplex LE BI DATE OF EXAM: 06/07/2018 1:37 PM COMPARISON: US CLINICAL HISTORY: R60.0 localized edema; bilateral LE swelling and bilateral foot swelling x 3 months ; COPD; CHF. Patient requested copy of this US report to Dr. Eddie Schulte, vascular surgeon SIDE PERFORMED: Bilateral TECHNIQUE: The lower extremity deep venous system is examined utilizing real time linear array sonog marcie with graded compression, doppler sonography and color-flow sonography. VESSELS IMAGED: Common Femoral Vein Deep Femoral Vein Greater Saphenous Vein * Femoral Vein Popliteal Vein Small Saphenous Vein * Proximal Calf Veins (* superficial vessels) Grayscale, color doppler, spectral doppler imaging performed of the deep veins of the lower extremiti es. There is normal flow, compressibility, vascular waveforms. Right Leg: Negative for DVT Left Leg: Negative for DVT Edema channels are noted at dorsal foot area bilaterally. Pulsatile venous waveforms are noted bilate ral LE which suggests CHF. IMPRESSION: 1. No sonographic evidence of deep venous thrombosis of either lower extremity. 2. Dependent lower extremity edema and pulsatile waveforms suggests a degree of congestive heart fail ure. Patient requested copy of this US report to Dr. Eddie Schulte, vascular surgeon ([address] [facility], [id number])
== END | disposition home or self-care (01) ==
LOC: RADUSWWP 13:01
PROVIDERS: ATTEND Internal Medicine
DX: R60.0 Localized edema (principal); R93.6 Abnormal findings on diagnostic imaging of limbs
CPT/HCPCS: 93970

== ENCOUNTER → 2018-06-07 | Outpatient (CLI) | payer MEDICARE, BC ==
--- NOTE | 2018-06-07 15:57 | XR ---
Left knee HISTORY: Knee pain 3 views of the left knee Bone mineralization, joint spaces and alignment are maintained. Vascular calcifications are noted in the soft tissues. Minimal marginal spurring suspected in the medial compartment, there is no sizable joint effusion. IMPRESSION: Possible mild osteoarthritis.
== END | disposition home or self-care (01) ==
LOC: RADXRMAIN 14:00
PROVIDERS: ATTEND Internal Medicine
DX: M25.569 Pain in unspecified knee (principal)